=== PATIENT | male | born 1975 | race African-American/Black ===

== ENCOUNTER 2018-04-08 09:47 | Emergency (ER) | payer SELFPAY ==
[2018-04-08 10:01] VITALS: PULSE 47; TEMP 97.5; BMI 22.8
--- NOTE | 2018-04-08 11:41 | PDOC ---
History of Present Illness <Shasha Desai - Last Filed: 04/08/18 16:41> - History of Present Illness Initial Comments: 04/08/18 11:31 42 M with no PMH presents to ER for evaluation of small bump on his forehead. Pt states that he has had a small, firm bump near his L [employer] that he first noticed 4 years ago. He had it evaluated by a doctor at that time, who told him it was benign. However, pt states that when he works out, the veins around the bump become more prominent, making him concerned that he may have an aneurysm. Pt denies any pain in the area. Denies any change in the size of the bump. Incidentally, pt was found to be bradycardic to 47 in triage. Pt denies any complaints currently. He states that he exercises frequently and is known to have low HR at baseline. Pt states that he occasionally gets lightheaded when he gets up from a seated position or when he works out. Denies any h/o syncope. Denies CP/SOB/ palpitations/lightheadedness currently. <Mario Leal - Last Filed: 04/08/18 18:39> - General Chief Complaint: Lightheaded Stated Complaint: DIZZINESS Time Seen by Provider: 04/08/18 11:19 Past History <Shasha Desai - Last Filed: 04/08/18 16:41> - Past Medical History COPD: No - Immunization History Immunization Up to Date: Yes - Suicide/Smoking/Psychosocial Hx Smoking History: Former smoker Have you smoked in the past 12 months: No If you are a former smoker, when did you quit?: 2013 Information on smoking cessation initiated: No Hx Alcohol Use: No Drug/Substance Use Hx: Yes (MARIJUANA) Substance Use Type: None, Alcohol, Marijuana <Mario Leal - Last Filed: 04/08/18 18:39> - Past Medical History Allergies/Adverse Reactions: Allergies Allergy/AdvReac Type Severity Reaction Status Date / Time No Known Allergies Allergy Verified 04/08/18 09:52 Review of Systems - Review of Systems Comments:: 04/08/18 12:09 GENERAL/CONSTITUTIONAL: No fever or chills. No weakness. HEAD, EYES, EARS, NOSE AND THROAT: No change in vision. No ear pain or discharge. No sore throat. CARDIOVASCULAR: No chest pain or shortness of breath. RESPIRATORY: No cough, wheezing, or hemoptysis. GASTROINTESTINAL: No nausea, vomiting, diarrhea or constipation. GENITOURINARY: No dysuria, frequency, or change in urination. MUSCULOSKELETAL: No joint or muscle swelling or pain. No neck or back pain. SKIN: No rash NEUROLOGIC: No headache, vertigo, loss of consciousness, or change in strength/ sensation. ENDOCRINE: No increased thirst. No abnormal weight change. HEMATOLOGIC/LYMPHATIC: No anemia, easy bleeding, or history of blood clots. ALLERGIC/IMMUNOLOGIC: No hives or skin allergy. <MelMario - Last Filed: 04/08/18 18:39> *Physical Exam - Vital Signs Last Vital Signs Temp Pulse Resp BP Pulse Ox 97.5 F L 47 L 16 97/57 L 100 04/08/18 09:52 04/08/18 09:52 04/08/18 09:52 04/08/18 09:52 04/08/18 09:52 <Shasha Desai - Last Filed: 04/08/18 16:41> - Vital Signs Last Vital Signs Temp Pulse Resp BP Pulse Ox 97.5 F L 47 L 16 97/57 L 100 04/08/18 09:52 04/08/18 09:52 04/08/18 09:52 04/08/18 09:52 04/08/18 09:52 - Physical Exam Comments: 04/08/18 12:09 GENERAL: Awake, alert, and fully oriented, in no acute distress. HEAD: +1cm firm nodule L forehead, no tenderness, no erythema/fluctuance/ induration, No signs of trauma EYES: PERRLA, EOMI, sclera anicteric, conjunctiva clear ENT: Auricles normal inspection, hearing grossly normal, nares patent, oropharynx clear without exudates. Moist mucosa NECK: Nontender, no stepoffs, Normal ROM, supple, no lymphadenopathy, JVD, or masses LUNGS: Breath sounds equal, clear to auscultation bilaterally. No wheezes, and no crackles HEART: Regular rate and rhythm, normal S1 and S2, no murmurs, rubs or gallops ABDOMEN: Soft, nontender, normoactive bowel sounds. No guarding, no rebound. No masses EXTREMITIES: Normal range of motion, no edema. No clubbing or cyanosis. No cords, erythema, or tenderness NEUROLOGICAL: Cranial nerves II through XII intact. 5/5 strength and sensation in all extremities, Normal speech, normal gait, normal cerebellar function SKIN: Warm, Dry, normal turgor, no rashes or lesions noted. <Mario Leal - Last Filed: 04/08/18 18:39> Heart Score/ECG Review - ECG Impressions Comment:: 04/08/18 12:10 Sinus bradycardia, rate 43, TWI in II, III, aVF, V4-V6, axis wnl, MO prolongation <Ou,Mario - Last Filed: 04/08/18 18:39> ED Treatment Course - LABORATORY CBC & Chemistry Diagram: 04/08/18 13:18 04/08/18 13:18 <Shasha Desai - Last Filed: 04/08/18 16:41> - LABORATORY CBC & Chemistry Diagram: 04/08/18 13:18 04/08/18 13:18 <OuMario - Last Filed: 04/08/18 18:39> Medical Decision Making - Medical Decision Making 04/08/18 12:34 The patient's case was discussed with Dr. Dumont, pneumatic hoist operator on-call, who advises the patient have a cardiac echo. 04/08/18 15:56 Dr. Linares was paged via phone answering service at this time requesting a call back. 04/08/18 16:[address] Linares at this time. Dr. Linares will come to see the patient at his earliest convenience. <Shasha Desai - Last Filed: 04/08/18 16:41> - Medical Decision Making 04/08/18 12:11 42 M with L forehead nodule, likely benign. Incidentally found to have bradycardia in ED. EKG shows deep TWI in inferior and lateral leads. Pt with no chest pain/SOB. No h/o syncope, but EKG may be suspicious for HCM. - Labs, trop - Cards consult 04/08/18 17:40 Labs wnl first trop negative Echo with aortic root dilation 4.4cm + aortic regurg No evidence of HCM Spoke with Dr. Linares, who recommends 2nd trop. Will come evaluate pt. 04/08/18 18:[address] Linares, cleared for DC. However, pt was mistakenly discharged by RN prior to my re-evaluation of pt and prior to repeat troponin. Per Dr. Linares's note, pt was informed of his test results and instructed to f/u for additional testing. <Mario Leal - Last Filed: 04/08/18 18:39> *DC/Admit/Observation/Transfer - Attestations Scribe Attestion: 04/08/18 12:35 Documentation prepared by Shasha Desai, acting as medical imaging tech for Mario Leal MD <Shasha Desai - Last Filed: 04/08/18 16:41> - Attestations Physician Attestion: 04/08/18 16:34 I, Dr. Mario Leal MD, attest that this document has been prepared under my direction and personally reviewed by me in its entirety. I further attest, that it accurately reflects all work, treatment, procedures and medical decision -making performed by me. <Mario Leal - Last Filed: 04/08/18 18:39> Diagnosis at time of Disposition: Abnormal EKG, Dilated aortic root - Referrals Referrals: Faheem Linares MD [Staff Physician] - - Patient Instructions Printed Discharge Instructions: Aortic Regurgitation Additional Instructions: You have an abnormal EKG. This may represent significant heart disease. You must follow up with a pneumatic hoist operator for further evaluation. Call the number provided to make an appointment within 1 week. Your ultrasound showed that you have a condition called "aortic root dilation". This is a serious issue that can lead to a life threatening condition called "aortic dissection". You must have routine follow up with a pneumatic hoist operator to have this monitored closely. If you experience any chest pain, shortness of breath, lightheadedness, palpitations, or any other concerning symptoms, return to the ER immediately.
[2018-04-08 13:33] LABS: BASO % 1.1 % (0-2.0); EOS % 1.4 % (0-4.5); HEMATOCRIT 43.1 % (35.4-49); HEMOGLOBIN 14.2 GM/dL (11.7-16.9); LYMPH % 58.9 % (8-40); MCH 28.3 pg (25.7-33.7); MCHC 32.9 g/dl (32.0-35.9); MEAN PLT VOLUME 7.7 fl (7.5-11.1); MONO % 7.1 % (3.8-10.2); NEUT % 31.5 % (42.8-82.8); PLATELET COUNT 180 K/MM3 (134-434); RBC 5.01 M/mm3 (4.00-5.60); RDW 13.4 % (11.9-15.9); WHITE BLOOD COUNT 2.7 K/mm3 (4.0-10.0)
[2018-04-08 14:18] LABS: ALBUMIN 4.1 g/dl (3.4-5.0); ALK PHOS 85 U/L (45-117); ANION GAP 6 MMOL/L (8-16); BILIRUBIN,TOTAL 0.8 mg/dL (0.2-1); BLOOD UREA NITROGEN 15 mg/dL (7-18); CALCIUM 9.2 mg/dL (8.5-10.1); CHLORIDE 108 mmol/L (98-107); CO2 27 mmol/L (21-32); CREATININE 0.9 mg/dL (0.55-1.3); GLUCOSE,RANDOM 78 mg/dL (74-106); N-TERMINAL BNP 85.5 pg/ml (5-125); POTASSIUM 5.1 mmol/L (3.5-5.1); SGOT/AST 26 U/L (15-37); SGPT/ALT 33 U/L (13-61); SODIUM 142 mmol/L (136-145); TOT PROT 7.7 g/dl (6.4-8.2)
--- NOTE | 2018-04-08 15:43 | ECHO ---
Name: TAYLOR SESAY Exam:Adult Echocardiogram Study Date: 04/08/2018 01:50 PM Age: 42 yrs Reason For Study: Chest pain Height: 69 in Weight: 155 lb BSA: 1.9 m2 MMode/2D Measurements & Calculations IVSd: 0.89 cm Ao root diam: 4.3 cm LVIDd: 4.2 cm ACS: 2.3 cm LVIDs: 2.6 cm LVPWd: 1.0 cm EDV(Teich): 79.2 ml LVOT diam: 2.4 cm ESV(Teich): 25.6 ml TAPSE: 1.7 cm RV S Moshe: 13.5 cm/sec Doppler Measurements & Calculations MV E max moshe: 98.7 cm/sec Med Peak E' Moshe: 5.4 cm/sec MV A max moshe: 45.4 cm/sec Med E/e': 18.4 MV E/A: 2.2 Lat Peak E' Moshe: 8.5 cm/sec Lat E/e': 11.6 Procedure The study was technically good with many images being of high quality. The patient was in normal sinu s rhythm during the exam. Left Ventricle The left ventricular size, thickness and function are normal. Ejection Fraction = 60-65%. The left ve ntricular wall motion is normal. Right Ventricle The right ventricle is normal size. The right ventricular systolic function is normal. Atria Normal left and right atrial size and function. Mitral Valve The mitral valve leaflets appear normal. There is no evidence of stenosis, fluttering, or prolapse. Tricuspid Valve The tricuspid valve is normal. There is trace tricuspid regurgitation. There was insufficient TR dete cted to calculate RV systolic pressure. Aortic Valve The aortic valve is normal in structure and function. Trace aortic regurgitation. Great Vessels Dilated aortic root, 4.4 cm. Normal IVC size and contractility. Pericardium/Pleura There is no pericardial effusion. There is no pleural effusion. Interpretation Summary The left ventricular size, thickness and function are normal The right ventricular systolic function is normal. Trace aortic regurgitation. Dilated aortic root, 4.4 cm MD Maria Luisa Dumont 04/08/2018 03:43 PM
--- NOTE | 2018-04-08 16:54 | CON.CARD ---
Consult Consult Specialty:: cardio - History of Present Illness Chief Complaint: bump on forehead History of Present Illness: 42 M presented to ER c/o bump on forehead with engorged veins when works out. on further questioning in ER he admitted to LH sometimes when stands up fast-- mild intensity, never presyncopal. denies any h/o syncope or palpitations ever. never had any sx's during exertion (note: he clarifies he NEVER felt LH during cardio workouts). does mostly weight training exercise, no endurance exercise. has no h/o cp, sob. HR 47 in ER, syst bp 97. EKG abnormal. sent for echo showing aorta root dilation PMH: denies HTN, HPL, DM denies cigs, etoh, illicit drugs (occasional marijuana) family history: mother in 30s "ruptured blood vessel behind her eye". father mult medical problems including heart--alive. pt unsure of details - Alcohol/Substance Use Hx Alcohol Use: No - Smoking History Smoking history: Former smoker Have you smoked in the past 12 months: No If you are a former smoker, when did you quit?: 2014 Home Medications - Allergies Allergies/Adverse Reactions: Allergies Allergy/AdvReac Type Severity Reaction Status Date / Time No Known Allergies Allergy Verified 04/08/18 09:52 Review of Systems - Review of Systems Constitutional: denies: Chills, Fever Eyes: denies: Eye Pain HENT: denies: Nasal Congestion Neck: denies: Stiffness Cardiovascular: denies: Palpitations Respiratory: denies: Orthopnea, PND Gastrointestinal: denies: Diarrhea, Rectal Bleeding Genitourinary: denies: Burning, Hematuria Musculoskeletal: denies: Muscle Pain Integumentary: denies: Rash Neurological: denies: Numbness, Seizure, Syncope Endocrine: denies: Excessive Sweating Hematology/Lymphatic: denies: Excessive Bleeding Vital Signs: Vital Signs Temperature 97.5 F L 04/08/18 09:52 Pulse Rate 47 L 04/08/18 09:52 Respiratory Rate 16 04/08/18 09:52 Blood Pressure 97/57 L 04/08/18 09:52 O2 Sat by Pulse Oximetry (%) 100 04/08/18 09:52 Constitutional: Yes: Well Nourished, No Distress Eyes: No: Sclera Icterus HENT: No: Nasal Congestion Neck: No: Decreased ROM Respiratory: Yes: CTA Bilaterally. No: Accessory Muscle Use, Rales, Wheezes Gastrointestinal: Yes: Normal Bowel Sounds. No: Distention, Hepatomegaly, Palpable Mass, Tenderness Cardiovascular: Yes: Regular Rate and Rhythm JVD: No Carotid Bruit: No PMI: Non-Displaced Heart Sounds: Yes: S1 (? soft systolic click), S2. No: Gallop Murmur: No: Systolic Murmur, Diastolic Murmur Musculoskeletal: Yes: Other (No kyphosis) Extremities: No: Cool, Cyanosis Edema: No Peripheral Pulses: 2+ Left Carotid, 2+ Right Carotid, 2+ Left Doralis Pedis, 2+ Right Dorsalis Pedis Integumentary: No: Jaundice Neurological: Yes: Alert, Oriented (x3) Psychiatric: No: Agitated - Other Data Labs, Other Data: CBC, BMP 04/08/18 13:18 04/08/18 13:18 Troponin, BNP 04/08/18 13:18 Troponin I < 0.02 B-Natriuretic Peptide 85.5 Troponin, BNP 04/08/18 13:18 Troponin I < 0.02 B-Natriuretic Peptide 85.5 Laboratory Tests 04/08/18 04/08/18 13:18 13:18 WBC 2.7 L Hgb 14.2 Plt Count 180 Sodium 142 Potassium 5.1 Carbon Dioxide 27 BUN 15 Creatinine 0.9 AST 26 ALT 33 Troponin I < 0.02 B-Natriuretic Peptide 85.5 Albumin 4.1 Assessment/Plan ECG: sinus bradycardia 43 bpm, normal axis and intervals (including QTc). LVH by voltage. no path Q waves. very abnormal T waves with deep TWIs V3-6 and inferior leads, concave ST eelvations V1-3. no prior available Echo today 04/08/18: nl LV/EF. no LVH. no RWMAs. nl RV. nl LA. normal valves ( including trileaflet AV). trace AI. 4.4 cm aorta root. positional LH: -c/w orthostatic hypotension sx's, in pt with resting BP low range. -sx's not c/w cardiac etiology at all--no further w/u required abnormal ECG: -no priors to compare -very abnormal, concerning for underlying HCM (with voltage criteria for LVH present as well) -no LVH seen on echo here, normal LV fxn -should have cardiac MRI as outpt to rule out subtle asymmetric LVH including apical HCM which can be difficult to visualize on echo. aorta root aneurysm: -pt with no h/o HTN, hence suspect genetic etiology of dilated root (4.4 cm) -no bicuspid AV noted on echo though mild AI in young pt is unusual. images reviewed with dr ingram--leaflets not clearly sen, cannot exlude BAV on this study. -to have outpt CMR to assess for bicuspid AV and image entire thoracic and abdominal aorta (elective, as pt with no attributable sx's to aneurysm) -warrants outpt eval with CV genetics to look for connective tissue disease mutations or other etiologies (no sx's of CTDz) -no sx's of aorta pathology here leukopenia: -WBCs 2K here -needs outpt f/u with pmd +/- heme disc'd the plan for outpt f/u for cardiac MRI +/- further evaluation with pt and in ER (nurse)--they verbalized understanding and agree to plan. he will also try to obtain more info re: father's diagnosis
[2018-04-08 18:18] VITALS: BP 138/82
--- NOTE | 2018-04-08 21:47 | EKG ---
Test Reason : Blood Pressure : / mmHG Vent. Rate : 043 BPM Atrial Rate : 043 BPM P-R Int : 232 ms QRS Dur : 082 ms QT Int : 506 ms P-R-T Axes : 073 088 256 degrees QTc Int : 427 ms MARKED SINUS BRADYCARDIA WITH SINUS ARRHYTHMIA WITH 1ST DEGREE A-V BLOCK ABNORMAL ECG NO PREVIOUS ECGS AVAILABLE Confirmed by MAINOR ROMERO MD ([id number]) on 04/08/2018 9:47:39 PM Referred By: Confirmed By:MAINOR ROMERO MD
== END 2018-04-08 18:18 | disposition home or self-care (01) ==
LOC: JER 09:47
DX: R94.31 Abnormal electrocardiogram [ECG] [EKG] (principal); I77.819 Aortic ectasia, unspecified site
CPT/HCPCS: 36415; 80053; 82550; 82553; 83880; 84484; 85025; 93005; 93010; 93306-TC; 99282-25